=== PATIENT | female | born 1990 | race Caucasian/White ===

== ENCOUNTER 2018-07-28 01:41 | Emergency (ER) | payer SELFPAY ==
[2018-07-28 02:52] LABS: Urine Appearance TURBID; Urine Blood 3+ (NEG); Urine Color RED; Urine Glucose NEGATIVE (NEG); Urine Microscopic Reflex ORDER UMIC; Urine Protein 3+ (NEG)
[2018-07-28 02:54] LABS: Urine Bilirubin 3+ (NEG)
[2018-07-28 02:58] LABS: Urine RBC TNTC /HPF (NONE SEEN)
[2018-07-28 03:09] LABS: Absolute Lymphocytes (CBC) 1.4 K/uL (0.7-4.9); Absolute Monocytes 0.4 K/uL (0.1-1.3); Absolute Neutrophil 5.4 K/uL (1.8-8.0); Basophils % 0.8 % (0-1.3); Eosinophils % 0.7 % (0-4.4); Monocytes % 5.9 % (3.3-12.3); RBC Red Blood Cell Count 5.39 M/uL (3.86-4.86)
[2018-07-28 03:29] LABS: ALT/SGPT 33 U/L (12-78); AST/SGOT 20 U/L (15-37); Albumin 3.5 g/dL (3.4-5.0); Alkaline Phosphatase 90 U/L (45-117); BUN Blood Urea Nitrogen 19 mg/dL (7-18); Bicarbonate 24 mmol/L (21-32); Bilirubin Direct < 0.1 mg/dL (0-0.2); Bilirubin Total 0.3 mg/dL (0.2-1.0); Glucose Level 160 mg/dL (74-106); Lipase 76 U/L (73-393); Potassium 3.9 mmol/L (3.5-5.1); Protein, Total 7.3 g/dL (6.4-8.2); Sodium Level 140 mmol/L (136-145)
[2018-07-28 03:36] LABS: Urine Bacteria <20 /HPF (<20); Urine Culture Reflex Order REFLEXED
[2018-07-28] MEDS ORDERED: KETOROLAC 30 MG/ML INJ ONE (03:37)
--- NOTE | 2018-07-28 04:19 | ER ---
Nurse's Notes [facility] Name: Sera Garsia Age: 27 yrs Sex: Female : 1990 Arrival Date: 07/28/2018 Time: 01:46 Bed 13 Private MD: Diagnosis: Calculus of ureter Presentation: 07/28 01:59 Presenting complaint: Patient states: Complaint of vomiting, dizziness, blood when lp1 wiping after voiding since 2315 tonight; Denies any fever. Transition of care: patient was not received from another setting of care. Onset of symptoms was July 28, 2018. Risk Assessment: Do you want to hurt yourself or someone else? Patient reports no desire to harm self or others. Initial Sepsis Screen: Does the patient meet any 2 criteria? No. Patient's initial sepsis screen is negative. Does the patient have a suspected source of infection? No. Patient's initial sepsis screen is negative. Care prior to arrival: None. 01:59 Method Of Arrival: Ambulatory lp1 01:59 Acuity: BAILEY 3 lp1 TRY OUT PERSON: 02:01 LMP N/A - Irregular menses lp1 Historical: - Allergies: 02:02 No Known Allergies; lp1 - Home Meds: 02:02 Nexplanon implant [Active]; lp1 - PMHx: 02:02 Kidney stones; lp1 - PSHx: 02:02 None; lp1 - Immunization history:: Adult Immunizations up to date. - Social history:: Smoking status: Patient/guardian denies using tobacco. - Ebola Screening: : No symptoms or risks identified at this time. Screenin:04 Abuse screen: Denies threats or abuse. Denies injuries from another. Nutritional lp1 screening: No deficits noted. Tuberculosis screening: No symptoms or risk factors identified. Fall Risk None identified. Assessment: 02:02 General: Appears uncomfortable, Behavior is appropriate for age. Pain: Complains of lp1 pain in left upper quadrant and left lower quadrant Pain currently is 8 out of 10 on a pain scale. Quality of pain is described as aching, sharp. Neuro: Level of Consciousness is awake, alert, obeys commands. Cardiovascular: Patient's skin is warm and dry. Respiratory: Respiratory effort is even, unlabored. GI: Abdomen is obese, Abdomen is tender to palpation in left upper quadrant and left lower quadrant. : Reports vaginal bleeding that is "pink when wiping". EENT: No signs and/or symptoms were reported regarding the EENT system. Derm: Skin is intact, Skin is dry, Skin is pale. Musculoskeletal: No deficits noted. 04:34 Reassessment: Patient is alert, oriented x 3, equal unlabored respirations, skin lp1 warm/dry/pink. Patient states feeling better. Patient states symptoms have improved. Vital Signs: 02:01 BP 131 / 84; Pulse 82; Resp 18; Temp 97.6(O); Pulse Ox 99% on R/A; Weight 122.47 kg; lp1 Height 5 ft. 8 in. (172.72 cm); Pain 8/10; 03:34 BP 139 / 67; Pulse 84; Resp 18; Pulse Ox 99% on R/A; lp1 02:01 Body Mass Index 41.05 (122.47 kg, 172.72 cm) lp1 ED Course: 01:46 Patient arrived in ED. es 01:58 Michelle Hernandez, RN is Primary Nurse. lp1 02:00 Triage completed. lp1 02:00 Arm band placed on. lp1 02:04 Patient has correct armband on for positive identification. Pulse ox on. NIBP on. lp1 02:36 Jay Zamora MD is Attending Physician. gs 02:50 Inserted saline lock: 20 gauge in right antecubital area, using aseptic technique. lp1 Blood collected. 03:17 Patient moved to MT via wheelchair. eh 03:19 CT completed. Patient tolerated procedure well. eh 03:24 Patient moved back from MT. eh 03:32 CT Stone Protocol In Process Unspecified. EDMS 04:18 Mili Walker MD is Referral Physician. gs 04:33 No provider procedures requiring assistance completed. IV discontinued, No lp1 redness/swelling at site. Pressure dressing applied. Administered Medications: 03:33 Drug: TORadol 30 mg Route: IVP; Site: right antecubital; lp1 04:33 Follow up: Response: Marked relief of symptoms; Pain is decreased lp1 Outcome: 04:18 Discharge ordered by . gs 04:34 Discharged to home ambulatory, with significant other. lp1 04:34 Condition: good 04:34 Discharge instructions given to patient, Instructed on discharge instructions, follow up and referral plans. medication usage, Demonstrated understanding of instructions, follow-up care, medications, Prescriptions given X 2. 04:34 Patient left the ED. lp1 Signatures: Dispatcher [employer] Gloria Mathis Ervin eh Pena, Laura RN RN lp1 Jay Zamora MD MD
--- NOTE | 2018-07-28 04:19 | EDPHYS ---
Physician Documentation [facility] Name: Sera Garsia Age: 27 yrs Sex: Female : 1990 Arrival Date: 07/28/2018 Time: 01:46 Bed 13 Private MD: ED Physician Jay Zamora HPI: 07/28 04:46 This 27 yrs old Female presents to ER via Ambulatory with complaints of gs Vomiting, WOKE UP IN PAIN, Blood in urine. 04:46 The patient complains of pain in the left low back and left mid back. The pain does not gs radiate. Onset: The symptoms/episode began/occurred acutely, this morning. Modifying factors: The symptoms are alleviated by nothing. the symptoms are aggravated by nothing. Associated signs and symptoms: Pertinent positives: vomiting. Severity of pain: At its worst the pain was severe in the emergency department the pain is unchanged. The patient has experienced similar episodes in the past, a few times. The patient has not recently seen a physician. CS ASSOCIATE: 02:01 LMP N/A - Irregular menses lp1 Historical: - Allergies: 02:02 No Known Allergies; lp1 - Home Meds: 02:02 Nexplanon implant [Active]; lp1 - PMHx: 02:02 Kidney stones; lp1 - PSHx: 02:02 None; lp1 - Immunization history:: Adult Immunizations up to date. - Social history:: Smoking status: Patient/guardian denies using tobacco. - Ebola Screening: : No symptoms or risks identified at this time. ROS: 04:46 All other systems are negative. gs Exam: 04:46 Head/Face: Normocephalic, atraumatic. Eyes: Pupils equal round and reactive to light, gs extra-ocular motions intact. Lids and lashes normal. Conjunctiva and sclera are non-icteric and not injected. Cornea within normal limits. Periorbital areas with no swelling, redness, or edema. ENT: Nares patent. No nasal discharge, no septal abnormalities noted. Tympanic membranes are normal and external auditory canals are clear. Oropharynx with no redness, swelling, or masses, exudates, or evidence of obstruction, uvula midline. Mucous membranes moist. Neck: Trachea midline, no thyromegaly or masses palpated, and no cervical lymphadenopathy. Supple, full range of motion without nuchal rigidity, or vertebral point tenderness. No Meningismus. Chest/axilla: Normal chest wall appearance and motion. Nontender with no deformity. No lesions are appreciated. Cardiovascular: Regular rate and rhythm with a normal S1 and S2. No gallops, murmurs, or rubs. Normal PMI, no JVD. No pulse deficits. Respiratory: Lungs have equal breath sounds bilaterally, clear to auscultation and percussion. No rales, rhonchi or wheezes noted. No increased work of breathing, no retractions or nasal flaring. Abdomen/GI: Soft, non-tender, with normal bowel sounds. No distension or tympany. No guarding or rebound. No evidence of tenderness throughout. Back: No spinal tenderness. No costovertebral tenderness. Full range of motion. Skin: Warm, dry with normal turgor. Normal color with no rashes, no lesions, and no evidence of cellulitis. MS/ Extremity: Pulses equal, no cyanosis. Neurovascular intact. Full, normal range of motion. Neuro: Awake and alert, GCS 15, oriented to person, place, time, and situation. Cranial nerves II-XII grossly intact. Motor strength 5/5 in all extremities. Sensory grossly intact. Cerebellar exam normal. Normal gait. 04:46 Constitutional: The patient appears alert, awake, uncomfortable. Vital Signs: 02:01 BP 131 / 84; Pulse 82; Resp 18; Temp 97.6(O); Pulse Ox 99% on R/A; Weight 122.47 kg; lp1 Height 5 ft. 8 in. (172.72 cm); Pain 8/10; 03:34 BP 139 / 67; Pulse 84; Resp 18; Pulse Ox 99% on R/A; lp1 02:01 Body Mass Index 41.05 (122.47 kg, 172.72 cm) lp1 MDM: 02:36 Patient medically screened. gs 04:46 Differential diagnosis: nephrolithiasis, pyelonephritis, UTI. Data reviewed: vital gs signs, nurses notes, lab test result(s), radiologic studies. Counseling: I had a detailed discussion with the patient and/or guardian regarding: the historical points, exam findings, and any diagnostic results supporting the discharge/admit diagnosis, lab results, radiology results, the need for outpatient follow up, a urologist. Response to treatment: the patient's symptoms have worsened after treatment, and as a result, I will discharge patient. 07/28 02:29 Order name: UA; Complete Time: 04:[address] [facility] 07/28 02:39 Order name: Basic Metabolic Panel; Complete Time: 04:17 07/28 02:39 Order name: CBC with Diff; Complete Time: 04:17 07/28 02:39 Order name: Hepatic Function; Complete Time: 04:17 07/28 02:39 Order name: Lipase; Complete Time: 04:17 07/28 02:40 Order name: Test, Urine; Complete Time: 04:17 EDTX 07/28 02:29 Order name: Urine Test (obtain specimen); Complete Time: 03:16 mw2 07/28 02:39 Order name: IV Saline Lock; Complete Time: 03:15 07/28 02:39 Order name: Labs collected and sent; Complete Time: 03:15 07/28 02:39 Order name: CT Stone Protocol 07/28 02:57 Order name: Urine Microscopic Only; Complete Time: 04:17 EDTX 07/28 03:38 Order name: Urine Culture EDTX Administered Medications: 03:33 Drug: TORadol 30 mg Route: IVP; Site: right antecubital; lp1 04:33 Follow up: Response: Marked relief of symptoms; Pain is decreased lp1 Disposition: 07/28/18 04:18 Discharged to Home. Impression: Calculus of ureter. - Condition is Stable. - Discharge Instructions: Kidney Stones, Renal Colic. - Prescriptions for Tylenol- Codeine #4 300-60 mg Oral Tablet - take 1 tablet by ORAL route every 6 hours As needed; 10 tablet. Zofran 4 mg Oral Tablet - take 1 tablet by ORAL route every 12 hours As needed; 6 tablet. - Medication Reconciliation Form, Thank You Letter, Antibiotic Education, Prescription Opioid Use form. - Follow up: Mili Walker MD; When: 2 - 3 days; Reason: Re-evaluation by your physician. Signatures: Dispatcher [employer] [facility] Michelle Hernandez RN RN lp1 Jay Zaomra MD MD Matthieu Beard mw2 Corrections: (The following items were deleted from the chart) 04:34 04:18 07/28/2018 04:18 Discharged to Home. Impression: Calculus of ureter. Condition is lp1 Stable. Forms are Medication Reconciliation Form, Thank You Letter, Antibiotic Education, Prescription Opioid Use. Follow up: Mili Walker; When: 2 - 3 days; Reason: Re-evaluation by your physician. gs
--- NOTE | 2018-07-28 13:11 | RAD REPORT ---
EXAM DESCRIPTION: CT - Stone Protocol - 07/28/2018 4:59 am COMPARISON: None CLINICAL HISTORY: Flank pain, left abdominal pain TECHNIQUE: Multiple helical axial images were obtained through the abdomen and pelvis without intrav enous contrast. Sagittal and coronal reformatted images are reviewed as well. All CT scans at this facility use dose modulation, iterative reconstruction, and/or weight-based dosi ng when appropriate to reduce radiation dose to as low as reasonably achievable. FINDINGS: Lung bases: Unremarkable. Liver: Homogenous attenuation is demonstrated. Gallbladder/biliary: Gallbladder appears unremarkable. No calcified gallstones. No evidence of biliar y ductal dilatation. Pancreas: Unremarkable. Spleen: Unremarkable. Adrenals: Unremarkable. Kidneys and ureters: There is a 4 mm stone in the proximal left ureter with mild left hydronephrosis. Subcentimeter hypodensity in the right kidney is present too small to characterize but likely repres enting a cyst. Bladder: Unremarkable. Pelvic organs: Unremarkable. Bowel: No evidence of bowel obstruction. No bowel wall thickening. Appendix appears unremarkable. Peritoneum: No free air. No significant free fluid. Lymph nodes: Unremarkable. Vasculature: Unremarkable. Soft tissues: Unremarkable. Bones: Unremarkable. IMPRESSION: Left proximal ureteral 4 mm stone with mild left hydronephrosis. Electronically signed by: Erick Martinez MD 07/28/2018 3:45 AM CDT Due to temporary technical issues with the PACS/Fluency reporting system, reports are being signed by the in house radiologist as a courtesy to ensure prompt reporting. The interpreting radiologist is f ully responsible for the content of the report.
== END 2018-07-28 04:34 | disposition home or self-care (01) ==
LOC: ER 01:41
DX: N20.1 Calculus of ureter (principal)
CPT/HCPCS: 36415; 74176; 76377; 80048; 80076; 81003; 81015; 81025; 83690; 85025; 87086; 87088; 96374; 99284